=== PATIENT | female | born 1975 | race Caucasian/White ===

== ENCOUNTER 2016-09-24 05:41 | Day surgery (SDC) | payer OTHER ==
[~2016-09-24] VITALS: Ht 157.5 cm; Wt 78.2 kg
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
[~2016-09-24 05:41] MED LIST: (DPS FOR ANTIVE25 MG PO; ASCORBIC ACID500 MG PO; ASPIRIN325 MG PO; BELSOMRA20 MG PO; CALCIUM 250+D1 EACH PO; CARAFATE1 GM PO; COLACE100 MG PO; DESYREL150 MG PO; DOLOPHINE10 MG PO; DURAGESIC 25MC25 MCG TOP; FEOSOL325 MG PO; FERGON325 M1 PO; IBUPROFEN800 MG PO; LIORESAL DS20 MG PO; LOTRISONE15 GM TOP; LOVENOX 3030 MG/0.3 SUB-Q; LOVENOX 4040 MG/0.4 SUB-Q; MECLIZINE HCL25 MG PO; METOCLOPRAMIDE H5 MG PO; MIRALAX17 GM PO; NEURONTIN300 MG PO; OMEPRAZOLE40 MG PO; OXYCONTIN EXTEN20 MG PO; PAXIL40 M1 PO; PERCOCET 5-3251 EACH PO; PROAIR HFA8.5 GM INH; PROBIOTIC1 EAC1 PO; PROTONIX40 MG PO; SENOKOT8.6 MG PO; SM SENNA-S TAB1 EACH PO; TIZANIDINE HCL6 MG PO; TYLENOL/COD1 TAB PO; VALIUM5 MG PO; VITAMIN D350000 UNIT PO; XYLOCAINE 2%20 MG/ML TOP
--- NOTE | 2016-09-24 16:35 | NUR ---
Significant Event: From PACU at 1245. Dressing to R) hip C/D/I. Ice at all times. Voids per bedside commode, frequent small amounts. Percocet 2 tabs and Dilaudid 0.2mg last at 1455. CSM WNL. To MRI at 1500 and returned at 1555. Remains on ETCO2 monitor. Follow up:
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
== END 2016-09-25 12:01 | disposition disaster alternative care site (69) ==
LOC: GSDC 05:41 → G3N 05:41 → GSDC 07:00 → G3N 12:48 → GSDC 09-25 12:01
PROC: 0SPA0JZ Removal of Synthetic Substitute from Right Hip Joint, Acetabular Surface, Open Approach (ICD-10-PCS; principal; 2016-09-24)
PROC: 0QP Lower Bones, Removal (ICD-10-PCS; 2016-09-24)
DX: Z47.2 Encounter for removal of internal fixation device (principal); F32.9 Major depressive disorder, single episode, unspecified; Z79.82 Long term (current) use of aspirin; Z79.899 Other long term (current) drug therapy
CPT/HCPCS: J0690; J1100; J1170; J2001; J2250; J2405; J3010; J3360; J7030

== ENCOUNTER → 2016-10-13 | Outpatient (CLI) | payer OTHER | END | disposition disaster alternative care site (69) | LOC: GRAD 09:34 | DX: S39.92XD Unspecified injury of lower back, subsequent encounter (principal); S39.93 Unspecified injury of pelvis; S32.501D Unspecified fracture of right pubis, subsequent encounter for fracture with routine healing; M41.9 Scoliosis, unspecified; V09.9XXD Pedestrian injured in unspecified transport accident, subsequent encounter ==

== ENCOUNTER → 2016-11-16 | Outpatient (CLI) | payer OTHER | END | disposition disaster alternative care site (69) | LOC: GRAD 09:00 | DX: S32.501D Unspecified fracture of right pubis, subsequent encounter for fracture with routine healing (principal) ==